=== PATIENT | female | born 1985 | race Caucasian/White ===

== ENCOUNTER 2018-07-06 11:40 | Inpatient (IN) | payer SELFPAY ==
[~2018-07-06] VITALS: Ht 160 cm; Wt 85.8 kg
[2018-07-06] VITALS (7 sets, daily range): BP systolic 113–125; BP diastolic 66–79
[2018-07-06] MEDS ORDERED: LACTATED RINGER'S 1000 ML IV STA (12:17)
[2018-07-06] MEDS ORDERED: LR 1,000 ML IV SCH (13:00)
--- NOTE | 2018-07-06 13:41 | NUR ---
L&D H&P HPI: 32year old G 9 P 6026 at approximately 35-36 weeks estimated gestation by LMP of 10/27/2017. Expected date of confinement: 08/05/2018. Presents today complaining of no movement for 2 days. 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 Patient reports mild lower abdominal pain. Patient is Sikh labs: Not done History Past medical history: None reported Surgical history: None reported Medications: vitamin. Calcium supplement. 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 No dysplasia or STI OB history: 6, all were uncomplicated at term. 2 first trimester miscarriages Social history: Sikh, no tobacco, alcohol or drug use Family history: Cystic fibrosis Objective Vitals: Normotensive, normal heart rate, afebrile Heart: Regular rate and rhythm. No murmurs, rubs or gallops. Lungs: Clear to auscultation bilaterally. No wheezes, crackles, rales or rhonchi. Abdomen: Uterine fundal height consistent with dates. No guarding or rebound tenderness. Extremities: No clubbing, cyanosis or edema. Normal deep tendon reflexes. Sterile vaginal exam: 1 cm, 25 %effacement, -3 station, cephalic, intact Ultrasound biometry in office today: EFW 1915 g, consistent with 32+1 weeks. Cephalic Assessment/Plan 32 year old with a third trimester stillborn. Patient is stable and ready for induction of labor -Admit to labor and delivery for IOL -Start with cervical ripening. Dr. Abraham Tavera, DO, FACOG
[2018-07-06 13:58] LABS: HEMATOCRIT 39.9 % (36.0-47.0); HEMOGLOBIN 13.3 g/dl (12.0-15.5); MEAN CORPUSCULAR HEMOGLOBIN 28.5 pg (27.0-33.0); MEAN CORPUSCULAR HGB CONC 33.3 g/dl (32.0-36.5); MEAN CORPUSCULAR VOLUME 85.4 fl (80.0-96.0); PLATELET COUNT, AUTOMATED 229 10^3/uL (150-450); RED BLOOD COUNT 4.67 10^6/uL (4.00-5.40); WHITE BLOOD COUNT 8.8 10^3/uL (4.0-10.0)
[2018-07-06 14:06] LABS: APPEARANCE, URINE HAZY (CLEAR); BACTERIA, URINE AUTO 1+ (NEGATIVE); BILIRUBIN, URINE AUTO NEGATIVE (NEGATIVE); BLOOD, URINE BLOOD NEGATIVE (NEGATIVE); COLOR, URINE YELLOW (YELLOW); GLUCOSE, URINE (UA) AUTO NEGATIVE (NEGATIVE); KETONE, URINE AUTO TRACE mg/dL (NEGATIVE); LEUKOCYTE ESTERASE, URINE AUTO NEGATIVE (NEGATIVE); MUCUS, URINE SMALL (NEGATIVE); NITRITE, URINE AUTO NEGATIVE (NEGATIVE); PROTEIN, URINE AUTO NEGATIVE (NEGATIVE); RBC, URINE AUTO 0 /HPF (0-3); SPECIFIC GRAVITY URINE AUTO 1.017 (1.002-1.035); SQUAMOUS EPITHELIAL CELL UR AU 4 /HPF (0-6); UROBILINOGEN, URINE AUTO 0.2 mg/dL (0.0-2.0); WBC, URINE AUTO 1 /HPF (0-3)
[2018-07-06] MEDS ORDERED: miSOPROStol 50 MCG 1/2 TAB (S0191) SL SCH (14:30)
[2018-07-06] MEDS ORDERED: PRENTAB9 PO (14:37)
[2018-07-06] MEDS ORDERED: miSOPROStol 100 MCG TAB (S0191) SL SCH (14:50)
[2018-07-06] MEDS: miSOPROStol 100 MCG TAB (S0191) SL SCH ×2 (14:53→18:45)
[2018-07-06 15:04] LABS: INR 1.06; PARTIAL THROMBOPLASTIN TIME 32.2 SECONDS (25.4-37.6); PROTHROMBIN TIME 13.9 SECONDS (12.1-14.4)
[2018-07-06] MEDS ORDERED: OXYTOCIN DRIP 30 UNITS in APPROPRIATE DILUENT 1 EA IV SCH (22:45)
--- NOTE | 2018-07-06 22:45 | NUR ---
Progress Note Pt feeling much more uncomfortable with contractions. Has received two doses of misoprostol 100mcg SL. No VB/LOF. VSS,normotensive, afebrile SVE: 4/50/-2, bloody show [place]: ctxs every 3-5 min per pt report A/P: Normal progression after 2 doses of misoprostol for cervical ripening. Proceed with IV Pitocin low dose protocol. Judith Tavera DO
[2018-07-07] VITALS (9 sets, daily range): BP systolic 102–135; BP diastolic 62–85
--- NOTE | 2018-07-07 02:44 | NUR ---
Delivery note Spontaneous vaginal delivery; stillborn Estimated gestational age at delivery: 36 weeks by LMP The active phase and second stage of labor progressed in normal fashion without epidural anesthesia. Patient received Pitocin labor augmentation. The head delivered left occiput anterior and restituted left occiput transverse. A tight nuchal cord was noted. The anterior shoulder delivered with gentle downward guidance and the remainder of the body delivered with ease. Cord clamping was delayed for approximately 1 minute after delivery. After doubly clamping the cord, I cut the cord. Time of delivery: 220. Sex: Female. The third stage of labor was actively managed with a bolus of IV Pitocin (30 units in 500 mL of normal saline). The placenta delivered completely intact with no missing cotyledons at 0221. A three-vessel cord with a central insertion was noted. After delivery of the placenta, the uterine fundus was approximately 2 cm below the umbilicus and firm. IV Pitocin was continued to maintain uterine tone. A normal, low level of uterine bleeding was noted. The cervix, vagina, vulva and perineum were inspected for lacerations. No laceration was noted. Excellent hemostasis was noted. Estimated blood loss: 100ml. All sponges, needles, and instruments were accounted for per PUMP TECHNICIAN department protocol. Abraham Tavera D.O., F.A.C.O.G.
[2018-07-07] MEDS ORDERED: OXYTOCIN DRIP 30 UNITS in APPROPRIATE DILUENT 1 EA IV SCH (02:46)
[2018-07-07] MEDS ORDERED: DOCUSATE SODIUM 100 MG CAP PO PRN (03:00)
[2018-07-07] MEDS ORDERED: PROMETHAZINE 25 MG TAB PO PRN (03:00)
[2018-07-07] MEDS ORDERED: ONDANSETRON 4MG/2ML VIAL (J2405) IV PRN (03:00)
[2018-07-07] MEDS ORDERED: ACETAMINOPHEN 500 MG TAB PO PRN (03:00)
[2018-07-07] MEDS ORDERED: RHOGAM 300 MCG (1500 IU) INJ (J2790) IM SCH (03:00)
[2018-07-07] MEDS ORDERED: DIBUCAINE 1% OINTMENT 30GM TOP PRN (03:00)
[2018-07-07] MEDS ORDERED: IBUPROFEN 800 MG TAB PO PRN (03:00)
[2018-07-07] MEDS ORDERED: MEASLES,MUMPS,RUBELLA VACCINE INJ (MMR-II) (90707) SC SCH (03:00)
[2018-07-07] MEDS ORDERED: PRENATAL VITAMINS CHEWABLE TABLET PO SCH (09:00)
--- NOTE | 2018-07-17 10:07 | NUR ---
Discharge summary Admission date: 07/06/18 Discharge date: 07/07/18 Admission diagnosis: stillborn, third trimester Discharge diagnosis: same; delivered via Discharge summary: 32yo [id number] [facility] patient admitted at 35-36 weeks gestation with a diagnosis of stillborn, confirmed by ultrasound. Pt reported absent movement x 24-48 hours prior to her admission. 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 She was admitted for induction of labor, which proceeded without any complication. Delivery of the stillborn occurred at 0221 on 07/07/18. Delivery was uncomplicated, as well as her immediate course. She was highly d esirous of hospital discharge shortly after delivery. As she was meeting all discharge criteria in the late AM of 07/07/18, she was discharged home. She was given routine , fever, infectious, pain, and bleeding precautions. I offered follow up in the office at 6-8 weeks. She has declined any of the routine stillborn lab work up and/or autopsy. Discharge medications: Motrin, Tylenol ANIYA. Judith Tavera DO
== END 2018-07-07 10:50 | disposition home or self-care (01) | DRG 560 ==
LOC: EDBD 11:40 → M LDI 11:40
PROVIDERS: ADMIT Obstetrics & Gynecology; ATTEND Obstetrics & Gynecology
DX: O69.89X0 Labor and delivery complicated by other cord complications, not applicable or unspecified (principal); O60.14X0 Preterm labor third trimester with preterm delivery third trimester, not applicable or unspecified; Z37.1 Single stillbirth; O09.32 Supervision of pregnancy with insufficient antenatal care, second trimester; O09.33 Supervision of pregnancy with insufficient antenatal care, third trimester; Z3A.36 36 weeks gestation of pregnancy; O09.31 Supervision of pregnancy with insufficient antenatal care, first trimester

== ENCOUNTER 2018-11-10 17:58 | Emergency (ER) | payer SELFPAY ==
[~2018-11-10] VITALS: Ht 160 cm; Wt 86.6 kg
[~2018-11-10 17:58] MED LIST: PRENTAB9 PO
[2018-11-10] MEDS ORDERED: CALC500C16 PO (18:04)
[2018-11-10] MEDS ORDERED: FOLI1TAB11 PO (18:04)
[2018-11-10 18:39] LABS: BASO % 0.1 % (0.0-1.0); EOS # 0.3 10^3/uL (0.0-0.50); EOS % 3.2 % (0.0-3.0); HEMATOCRIT 39.6 % (36.0-47.0); HEMOGLOBIN 13.6 g/dl (12.0-15.5); LYMPH # 3.1 10^3/uL (1.5-4.5); LYMPH % 35.7 % (24.0-44.0); MEAN CORPUSCULAR HEMOGLOBIN 29.5 pg (27.0-33.0); MEAN CORPUSCULAR HGB CONC 34.3 g/dl (32.0-36.5); MEAN CORPUSCULAR VOLUME 85.9 fl (80.0-96.0); MONO # 0.6 10^3/uL (0.0-0.8); MONO % 6.8 % (0.0-5.0); NEUTROPHILS # 4.7 10^3/uL (1.8-7.7); NEUTROPHILS % 54.1 % (36.0-66.0); PLATELET COUNT, AUTOMATED 260 10^3/uL (150-450); RED BLOOD COUNT 4.61 10^6/uL (4.00-5.40); WHITE BLOOD COUNT 8.7 10^3/uL (4.0-10.0)
[2018-11-10 19:09] LABS: BLOOD UREA NITROGEN 15 MG/DL (7-18); CALCIUM LEVEL 9.4 MG/DL (8.5-10.1); CARBON DIOXIDE LEVEL 28 MEQ/L (21-32); CHLORIDE LEVEL 109 MEQ/L (98-107); CREATININE FOR GFR 0.52 MG/DL (0.55-1.30); GLOMERULAR FILTRATION RATE > 60.0 (>60); GLUCOSE, FASTING 93 MG/DL (70-100); POTASSIUM SERUM 4.2 MEQ/L (3.5-5.1); SODIUM LEVEL 142 MEQ/L (136-145)
[2018-11-10 20:47] LABS: HCG, SERUM QUALITATIVE NEGATIVE (NEGATIVE)
[2018-11-10 21:42] VITALS: BP 131/80
--- NOTE | 2018-11-10 22:21 | REPVR ---
EXAM: US Pelvis Complete, Transabdominal and US Pelvis, Transvaginal EXAM DATE/TIME: 11/10/2018 9:29 PM CLINICAL HISTORY: 33 years old, female; Menstruation abnormalities; Excessive menstruation; With regular cycle; Additional info: Heavy bleeding TECHNIQUE: Imaging protocol: Real-time transabdominal and transvaginal pelvic ultrasound (complete) with image documentation. Transvaginal imaging was used for better evaluation of the endometrium and adnexa. COMPARISON: No relevant prior studies available. FINDINGS: Uterus/cervix: Uterus is anteverted and measures 9.3 x 3.4 x 6.0 cm. Endometrial stripe measures 0.5 cm in thickness. Right adnexa: The right ovary is not visualized. Left adnexa: The left ovary measures 2.1 x 2.6 x 2.0 cm. No mass. Normal ovarian blood flow. Free fluid: None. Bladder: Normal. IMPRESSION: No acute findings. Electronically signed by: Daily Zamora On 11/10/2018 22:21:12 PM
== END 2018-11-10 22:54 | disposition home or self-care (01) ==
LOC: M ED 17:58
DX: N92.0 Excessive and frequent menstruation with regular cycle (principal)